=== PATIENT | female | born 1960 | race Caucasian/White ===

== ENCOUNTER 2016-07-12 12:13 | Emergency (ER) | payer SELFPAY ==
[~2016-07-12 12:13] MED LIST: CYCL5TAB PO
[2016-07-12] MEDS ORDERED: MED4DP PO (16:52)
== END 2016-07-12 16:01 | disposition left against medical advice (07) ==
LOC: E/R 12:13
DX: Z53.21 Procedure and treatment not carried out due to patient leaving prior to being seen by health care provider (principal)

== ENCOUNTER 2016-07-12 14:04 | Emergency (ER) | payer OTHER ==
[~2016-07-12] VITALS: Ht 157.5 cm; Wt 49.0 kg
[2016-07-12 14:31] VITALS: Ht 157.5 cm; Wt 49.0 kg
--- NOTE | 2016-07-12 16:26 | ERD ---
ER Documentation Chief Complaint Date/Time DATE: 07/12/16 TIME: 16:23 Chief Complaint Pt with pain in L hip and back, hx of falls. HPI Patient is a 56-year-old female who presents to the ED with chronic back pain. She states that she has diagnosed with degenerative disc disease, radiculopathy. She states that she is planning on getting a laminectomy at some point. She states that she went to her neurosurgeon initially who stated that she needs a second opinion. She states that once her [facility] was figured out she is waiting for 2 months to go to the second neurosurgeon. She states that she is here in the ER because she is "falling a lot" and is living alone and does not know what else to do. She states that she is able to walk but she has falls often. She is able to dress herself and cook for herself and go to the bathroom. She denies bladder or bowel incontinence. She denies fever or chills. She denies abdominal pain, nausea, vomiting or diarrhea. She states that she was prescribED narcotic medications in the past however for the last couple of months she is not taking any medications because she does not like to take those. She is taking Tylenol and Motrin for her symptoms. She uses a cane to walk around. She states that she is here because she "does not know what else to do" and would like to speak to a neurosurgeon here. ROS All systems reviewed and are negative except as per history of present illness. Medications Home Meds Active Scripts Methylprednisolone* (Medrol* DOSE PACK) 4 Mg/Dose-Pack Tab.ds.pk, 4 MG PO . DIRECTED for 4 Days, PACKET Prov:OLGA WALLER PA-C 07/12/16 Cyclobenzaprine Hcl* (Cyclobenzaprine Hcl*) 5 Mg Tablet, 5 MG PO Q8H Y for PAIN , #15 TAB Prov:YANIRA DIAZ PA-C 10/10/15 Allergies Allergies: Coded Allergies: No Known Allergy (Unverified , 07/12/16) PMhx/Soc Medical and Surgical Hx: pt denies Medical Hx, pt denies Surgical Hx History of Surgery: No Anesthesia Reaction: No Hx Neurological Disorder: No Hx Respiratory Disorders: No Hx Cardiac Disorders: No Hx Psychiatric Problems: No Hx Miscellaneous Medical Probl: Yes (Degenerative disc disease, radiculopathy) Hx Alcohol Use: No Hx Substance Use: No Hx Tobacco Use: No Smoking Status: Never smoker FmHx Family History: No coronary disease, No diabetes, No other Physical Exam Vitals Physical Exam GENERAL: Well-developed, well-nourished female. Appears in no acute distress. HEAD: Normocephalic, atraumatic. EYES: Pupils are equally reactive bilaterally. EOMs grossly intact. No conjunctival erythema. ENT: Moist mucous membranes. No uvula deviation. No kissing tonsils. No exudates. NECK: Supple. No lymphadenopathy or thyromegaly. No meningismus. negative kernig. negative brudinski. LUNG: Clear to auscultation bilaterally. No rhonchi, wheezing, rales or coarse breath sounds. HEART: Regular rate and rhythm. No murmurs, rubs or gallops. BACK: No midline tenderness. no spinal or paraspinal tenderness. no warmth or erythema. no induration or fluctuance. no swelling. no wounds. Extremities: Equal pulses bilaterally. No peripheral clubbing, cyanosis or edema. No unilateral leg swelling. NEUROLOGIC: Alert and oriented. Moving all four extremities. 5/5 strength in all extremities. Normal speech. unSteady gait. SKIN: Normal color. Warm and dry. No rashes or lesions. Capillary refill < 2 seconds Procedures/MDM ER COURSE: I kept the patient and/or family informed of laboratory and diagnostic imaging results throughout the emergency room course. MEDICAL DECISION MAKING: This is a 56 year old female who presents with chronic back pain. Vital signs were reviewed. Patient is afebrile. Patient is not hypoxic. Patient is not toxic or ill-appearing. I consulted with Dr. Maldonado regarding this patient. Patient has chronic back pain and will need to get surgery according to the neurosurgeon. However patient does not show signs of bowel bladder incontinence or other emergent conditions and will not be admitted. I consulted with social work for them to come speak to patient regarding resources and help at home. I will not be doing any further imaging studies as patient has had a recent MRI and other imaging studies reflecting her disease. Patient needs to follow-up with her neurosurgeon for earlier appointment and to follow-up with the initial neurosurgeon. I will be giving names of other neurosurgeons that patient can call. Low suspicion for cauda equine syndrome, spinal epidural hematoma, spinal epidural abscess, osteomyelitis, fracture, aortic dissection, AAA, pyelonephritis, nephrolithiasis, septic stone, obstructed stone. Patient is asking multiple questions and requesting to stay in the hospital tonight since she does not want to go back to her apartment. She states that she has been living at her friend's house. patient states that she wants to sleep at the hospital and speak to the neurosurgeon. distillery worker general came to speak with patient and gave patient resources regarding in home help, nursing, housing. Patient accepted the information and will be calling the resources tomorrow. Patient did not understand why she could not stay in the hospital. DISCHARGE: At this time, patient is stable for discharge and outpatient management with no new complaints during the ER course. Patient was sent home with Medrol Dosepak.. Patient will be discharged home with instructions to recheck for new or worsening symptoms such as fever, nausea, weakness, LOC and to follow up with primary care in the next 1-2 days. Patient was advised to return to the ER for any new or worsening symptoms. Plan was discussed and patient and/or family understands and agrees. Home instructions were given. Departure Diagnosis: Primary Impression: Degenerative disc disease Spinal region: lumbar Qualified Code: M51.36 - Degeneration of intervertebral disc of lumbar region Additional Impression: Radiculopathy Spinal region: unspecified Qualified Code: M54.10 - Radiculopathy, unspecified spinal region Condition: Stable OLGA WALLER PA-C July 12, 2016 16:26 intervertebral disc of lumbar region Additional Impression: Radiculopathy Spinal region: unspecified Qualified Code: M54.10 - Radiculopathy, unspecified spinal region Condition: Stable OLGA WALLER PA-C July 12, 2016 16:26
[2016-07-12] MEDS ORDERED: MED4DP PO (16:52)
[2016-07-12 17:13] VITALS: BP 135/87; PULSE 78; RESP 18; TEMP 98.7
== END 2016-07-12 17:25 | disposition home or self-care (01) ==
LOC: FTE 14:04
DX: M51.36 Other intervertebral disc degeneration, lumbar region (principal); M54.16 Radiculopathy, lumbar region
CPT/HCPCS: 99283

== ENCOUNTER 2017-06-12 15:39 | Emergency (ER) | END 2017-06-12 18:03 | disposition home or self-care (01) ==